=== PATIENT | female | born 1970 | race African-American/Black ===

== ENCOUNTER 2017-01-20 15:39 | Outpatient (CLI) ==
[2016-05-07 15:08] VITALS: BMI 34.0
[2017-01-20 18:18] LABS: BILIRUBIN,URINE Negative (NEGATIVE); KETONES,URINE Trace (NEGATIVE); LEUKOCYTE ESTERASE ,URINE Negative (NEGATIVE); NITRITE,URINE Negative (NEGATIVE); PH,URINE 6.5 (5-9); PROTEIN,URINE Negative (NEGATIVE); URINE, BLOOD Trace-intact (NEGATIVE)
[2017-01-20 18:33] LABS: ADD URINE MICROSCOPIC YES
== END 2017-01-20 15:40 | disposition home or self-care (01) ==
LOC: LAB 15:39
PROVIDERS: ATTEND Nurse Practitioner Family
DX: R30.0 Dysuria (principal)
CPT/HCPCS: 81001

== ENCOUNTER 2017-08-30 08:54 | Outpatient (CLI) ==
[2016-05-07 15:08] VITALS: BMI 34.0
[2017-08-30 09:20] LABS: BASOPHILS % (AUTO) 0.6 % (0.0-3.0); EOSINOPHILS % (AUTO) 0.6 % (0.0-7.0); HEMATOCRIT 36.7 % (37.0-47.0); HEMOGLOBIN 12.2 g/dl (12.0-16.0); LYMPHOCYTES # (AUTO) 1.5 K/uL (0.60-3.4); LYMPHOCYTES % (AUTO) 43.8 (10.0-50.0); MEAN CORPUSCULAR HEMOGLOBIN 29.5 pg (27.0-31.0); MEAN CORPUSCULAR HGB CONC 33.2 (31.8-35.4); MEAN CORPUSCULAR VOLUME 88.9 fl (81.0-99.0); MONOCYTES # (AUTO) 0.3 K/uL (0.4-2.0); MONOCYTES % (AUTO) 7.7 (0-10); NEUTROPHILS # (AUTO) 1.6 K/ul (2.0-6.9); NEUTROPHILS % (AUTO) 47.3; PLATELET COUNT 338 10^3/uL (140-440); RED BLOOD COUNT 4.13 10^6/ul (4.20-5.40); WHITE BLOOD COUNT 3.38 K/ul (4.6-10.2)
[2017-08-30 10:04] LABS: ALBUMIN 3.8 g/dL (3.4-5.0); ALBUMIN/GLOBULIN RATIO 0.83; ANION GAP 14.6; BILIRUBIN,TOTAL 0.16 mg/dL (0.00-1.20); BUN/CREATININE RATIO 8.13; CALCIUM 9.6 mg/dL (8.2-10.2); CHOL/HDL RATIO 4.2 (4.5-5.5); CREATININE 0.86 mg/dL (0.60-1.30); POTASSIUM 3.6 mmol/L (3.5-5.10); TOTAL PROTEIN 8.4 g/dL (6.4-8.2)
== END 2017-08-30 08:55 | disposition home or self-care (01) ==
LOC: LAB 08:54
PROVIDERS: ATTEND Emergency Medicine
DX: E78.5 Hyperlipidemia, unspecified (principal); I10 Essential (primary) hypertension; E66.9 Obesity, unspecified; D50.8 Other iron deficiency anemias
CPT/HCPCS: 36415; 80053; 80061; 84443; 85025

== ENCOUNTER 2017-09-01 09:29 | Outpatient (CLI) ==
[2016-05-07 15:08] VITALS: BMI 34.0
--- NOTE | 2017-09-02 10:34 | MAMMO ---
EXAM: Bilateral digital screening mammogram (2-D and 3-D) History: Screening Comparison: Bilateral mammogram 06/17/2014 Findings: MLO and CC views of bilateral breasts demonstrate heterogeneously dense breast parenchyma which can obscure small lesions. CAD was reviewed by the radiologist. Tomosynthesis was performed. There are no dominant masses, no suspicious microcalcifications and no architectural distortions Impression: Stable negative mammogram. Recommend followup routine screening mammography in 1 year. BIRADS 1
== END 2017-09-01 09:30 | disposition home or self-care (01) ==
LOC: RAD 09:29
PROVIDERS: ATTEND Emergency Medicine
DX: Z12.31 Encounter for screening mammogram for malignant neoplasm of breast (principal)
CPT/HCPCS: 77067

== ENCOUNTER 2018-02-27 07:08 | Outpatient (CLI) ==
[2016-05-07 15:08] VITALS: BMI 34.0
== END 2018-02-27 07:09 | disposition home or self-care (01) ==
LOC: LAB 07:08
PROVIDERS: ATTEND Nurse Practitioner Family
DX: D50.8 Other iron deficiency anemias (principal); I10 Essential (primary) hypertension; E78.5 Hyperlipidemia, unspecified
CPT/HCPCS: 36415; 80053; 80061; 85025

== ENCOUNTER 2018-02-28 08:04 | Outpatient (CLI) ==
[2016-05-07 15:08] VITALS: BMI 34.0
--- NOTE | 2018-02-28 11:58 | CT ---
EXAM: CT ABDOMEN AND PELVIS HISTORY: Abdominal pain, nausea and vomiting. TECHNIQUE: CT abdomen and pelvis with intravenous contrast. Images were reconstructed using 5 mm sec tion thickness. Reformations were prepared. FINDINGS: No comparison. Liver and spleen are unremarkable. Gallbladder, pancreas and adrenal glands appear normal. Normal e nhancement of the kidneys with no hydronephrosis. Normal abdominal aorta. Stomach appears grossly normal. There is no evidence of appendicitis. Normal bowel gas pattern. Douglas traci has been removed. The urinary bladder is grossly unremarkable. There is no ascites. There is an umbilical hernia which contains a short portion of regional small bowel without evidence of strangulation. The deep aspect of the hernia has a diameter of about 2.8 cm. The bones reveal mo derate degenerative changes at the lumbosacral junction. Left sacroiliitis is incidentally noted. L shawna bases reveal no acute infiltrates. There is no pneumoperitoneum. IMPRESSION: 1. No obvious acute intra-abdominal or pelvic abnormality. 2. There is an umbilical hernia which contains a short portion of regional small bowel without evide nce of strangulation. The deep aspect of the hernia has a diameter of about 2.8 cm. Bowel gas patter n is nonobstructive.
== END 2018-02-28 08:05 | disposition home or self-care (01) ==
LOC: RAD 08:04
PROVIDERS: ATTEND Nurse Practitioner Family
DX: R10.9 Unspecified abdominal pain (principal); R10.816 Epigastric abdominal tenderness; R11.2 Nausea with vomiting, unspecified

== ENCOUNTER 2018-04-18 16:11 | Outpatient (CLI) ==
[2016-05-07 15:08] VITALS: BMI 34.0
== END 2018-04-18 16:12 | disposition home or self-care (01) ==
LOC: RHC-LAB 16:11
PROVIDERS: ATTEND Nurse Practitioner Family
DX: R53.83 Other fatigue (principal)
CPT/HCPCS: 36415; 82306; 82607

== ENCOUNTER 2018-04-27 15:55 | Emergency (ER) ==
[2018-04-27 16:17] VITALS: BP 191/107; TEMP 99.1; BMI 38.0
--- NOTE | 2018-04-27 16:46 | US ---
EXAM: Abdominal ultrasound limited HISTORY: Abdominal pain with nausea and vomiting COMPARISON: CT abdomen pelvis 02/28/2018 and 03/21/2012 TECHNIQUE: Sonographic and limited Doppler evaluation of the right upper quadrant was performed. FINDINGS: The liver is increased in echogenicity and measures 12.3 cm. The portal vein is patent. The gallbladder demonstrates no stones or pericholecystic fluid. The gallbladder wall measures 0.2 c m in thickness. Common bile duct is unremarkable and measures 0.3 cm in diameter. The pancreas is po zina visualized due to bowel gas. The right kidney is normal in appearance measuring 10.1 x 4.0 x 3. 5 cm with cortical thickness of 0.9 cm. IMPRESSION: 1. Increased echogenicity of the liver suggestive of hepatic steatosis. 2. Gallbladder is unremarkable in appearance.
--- NOTE | 2018-04-27 16:58 | CT ---
EXAM: CT abdomen pelvis without contrast HISTORY: Umbilical pain, left lower quadrant abdominal pain, diarrhea COMPARISON: 02/28/2018 TECHNIQUE: CT abdomen pelvis performed without intravenous contrast. Coronal and sagittal reformatt ed images obtained. FINDINGS: Lung bases clear. No free air. No acute abnormalities of the bones. Degenerative change in the spine, L5-S1. Heart normal in size. Evaluation organ parenchyma limited without contrast. Liver unremarkable. Gallbladder unremarkable. Pancreas unremarkable. Spleen unremarkable. Adrenal s unremarkable. Aorta normal in caliber. Bladder unremarkable. Patient status post hysterectomy. No lymphadenopathy or ascites. Diastases anterior abdominal wall/wide neck ventral hernia containing nonobstructed small bowel, unchanged. Stomach appears normal. No dilated loops small bowel. Appen martina appears normal. Colon unremarkable. No hydronephrosis or nephrolithiasis. No calculi visualize d in normal course of the ureters. IMPRESSION: 1. No acute abnormality identified in the abdomen or pelvis. 2. Diastases anterior abdominal wall/wide neck ventral hernia containing nonobstructed small bowel, unchanged.
--- NOTE | 2018-04-27 17:26 | ED.PDOC ---
General ED Provider: Dr. MARZENA ROLAND Chief Complaint: Abdominal Pain Stated Complaint: abdominal pain chronic Time Seen by Physician: 16:00 Mode of Arrival: Walk-In Information Source: Family Exam Limitations: No limitations Primary Care Provider[facility] Nursing and Triage Documentation Reviewed and Agree: Yes Does patient meet sepsis criteria?: No System Inflammatory Response Syndrome: Not Applicable Sepsis Protocol: For patient's 13 years and over: Temp is 96.8 and below OR 101 and greater Pulse >90 BPM Resp >20/minute Acutely Altered Mental Status Are patient's symptoms suggestive of a new infection, such as: -Pneumonia -Skin, Soft Tissue -Endocarditis -UTI -Bone, Joint Infection -Implantable Device -Acute Abdominal Infection -Wound Infection -Meningitis -Blood Stream Catheter Infection -Unknown GI Complaint Exam - Abdominal Pain Complaint/Exam Onset: Gradual Duration: chronic issue Symptoms Are: Still present Initial Severity: Mild Current Severity: Mild Location of Pain: Diffuse Character: Reports: Aching Aggravating: Reports: None Alleviating: Reports: None Associated Signs and Symptoms: Denies: Diaphoresis, Fever, Cough, Chest pain, Dizziness, Back pain, Constipation, Blood in stool, Dysuria, Urinary frequency, Decreased urine output, Decreased appetite, Vaginal bleeding, Vaginal discharge , Nausea, Vomiting, Diarrhea, Sore throat, Decreased activity Related History: Reports: Similar episode AAA Risk Factors: Reports: None Cardiac Risk Factors: Reports: None Ectopic Risk Factors: Reports: None Ovarian Torsion Risk Factors: Reports: None Surgical Obstruction Risk Factors: Reports: None Related Surgical History: Reports: None Patient Rh Status: Unknown Abdominal Findings: Present: None Differential Diagnoses: Appendicitis, Bowel Obstruction, Constipation, Gastroenteritis, Hepatitis, Pancreatitis, Irritable Bowel Syndrome Review of Systems - Review Of Systems Constitutional: Reports: No symptoms Eyes: Reports: No symptoms Ears, Nose, Mouth, Throat: Reports: No symptoms Respiratory: Reports: No symptoms Cardiac: Reports: No symptoms GI: Reports: Abdominal pain : Reports: No symptoms Musculoskeletal: Reports: No symptoms Skin: Reports: No symptoms Neurological: Reports: No symptoms Endocrine: Reports: No symptoms Hematologic/Lymphatic: Reports: No symptoms All Other Systems: Reviewed and Negative Past Medical History - Past Medical History Previously Healthy: No Endocrine: Reports: None Cardiovascular: Reports: Hypertension Respiratory: Reports: None Hematological: Reports: None Gastrointestinal: Reports: GERD Genitourinary: Reports: None Neuro/Psych: Reports: None Musculoskeletal: Reports: None Cancer: Reports: None Last Menstrual Period: hysterectomy - Surgical History General Surgical History: Reports: None - Family History Family History: Reports: None - Social History Smoking Status: Never smoker Hx Substance Use: No Alcohol Screening: None Physical Exam - Physical Exam Appearance: Well-appearing, No pain distress, Well-nourished Eyes: JEANNETTE, EOMI, Conjunctiva clear ENT: Ears normal, Nose normal, Oropharynx normal Respiratory: Airway patent, Breath sounds clear, Breath sounds equal, Respirations nonlabored Cardiovascular: RRR, Pulses normal, No rub, No murmur GI/: Soft, Nontender, No masses, Bowel sounds normal, No Organomegaly Musculoskeletal: Normal strength, ROM intact, No edema, No calf tenderness Skin: Warm, Dry, Normal color Neurological: Sensation intact, Motor intact, Reflexes intact, Cranial nerves intact, Alert, Oriented Psychiatric: Affect appropriate, Mood appropriate Interpretation - Radiology Interpretation Radiology Results: Positive (fatty liver) Critical Care Note - Critical Care Note Total Time (mins): 0 Course - Course Hematology/Chemistry: 04/27/18 16:44 Orders, Labs, Meds: Lab Review 04/27/18 04/27/18 16:10 16:44 Sodium 138 Potassium 3.2 L Chloride 103 Carbon Dioxide 24 Anion Gap 14.2 BUN 6 L Creatinine 0.83 Estimated GFR (MDRD) 90.00 BUN/Creatinine Ratio 7.22 Glucose 95 Calcium 9.8 Total Bilirubin 0.3 AST 17 ALT 17 Alkaline Phosphatase 75 Total Protein 8.6 H Albumin 4.0 Globulin 4.6 Albumin/Globulin Ratio 0.87 Amylase 143 H Lipase 44 Urine Color Yellow Urine Clarity Clear Urine pH 6.0 Ur Specific [place] <=1.005 Urine Protein Negative Urine Glucose (UA) Negative Urine Ketones Negative Urine Blood Negative Urine Nitrite Negative Urine Bilirubin Negative Urine Urobilinogen 0.2 Ur Leukocyte Esterase Trace Urine Microscopic RBC 0-2 Urine Microscopic WBC 0-2 Ur Squamous Epith Cells Not present Orders Category Date Time Status NPO REMINDER: IMAGING ONCE CARE 04/27/18 16:19 Ordered AMYLASE Stat LAB 04/27/18 16:18 Ordered CBC W/ AUTO DIFF Stat LAB 04/27/18 16:18 Ordered COMPREHENSIVE METABOLIC PANEL Stat LAB 04/27/18 16:18 Ordered LIPASE Stat LAB 04/27/18 16:18 Ordered URINALYSIS C & S IF INDICATED Stat LAB 04/27/18 16:[address] ABDOMEN/PELVIS WO CONTRAST Stat RADS 04/27/18 16:18 Ordered ULTRASOUND ABDOMEN, RT. UPPER QUAD [U/S ABDOMEN, RT. RADS 04/27/18 16:19 Ordered UPPER QUAD] Stat Vital Signs: Temp Pulse Resp BP Pulse Ox 04/27/18 15:56 99.1 F 95 H 20 191/107 H 97 Departure - Departure Time of Disposition: 17:25 (d/c instruction given with chaz hall disccused fatty liver pt admitt to eating fast foods and will see a installation drafter ) Disposition: HOME SELF-CARE Discharge Problem: Abdominal pain, Fatty liver Abdominal pain Qualifiers: Abdominal location: unspecified location Qualified Code(s): R10.9 - Unspecified abdominal pain Instructions: Non-Alcoholic Fatty Liver Disease (ED), Chronic Abdominal Pain ( ED) Condition: Good Pt referred to PMD for follow-up: Yes IPMP verified?: No Additional Instructions: Please call your Family Physician as soon as possible to schedule a follow-up appointment. Allergies/Adverse Reactions: Allergies metaxalone [From Skelaxin] Allergy (Intermediate, Verified 04/27/18 16:05) Itching morphine Allergy (Mild, Verified 04/27/18 16:05) nausea Patient will notify drugstore Disposition Discussed With: Patient
== END 2018-04-27 17:36 | disposition home or self-care (01) ==
LOC: ED 15:55
DX: R10.9 Unspecified abdominal pain (principal); I10 Essential (primary) hypertension; K21.9 Gastro-esophageal reflux disease without esophagitis; K76.0 Fatty (change of) liver, not elsewhere classified
CPT/HCPCS: 36415; 80053; 81001; 82150; 83690; 85025; 99283

== ENCOUNTER 2018-05-26 10:45 | Outpatient (CLI) ==
--- NOTE | 2018-05-26 11:39 | DI ---
EXAM: Two views of the left clavicle. History: Left clavicle pain. Findings: No acute fracture or dislocation. Joint spaces are preserved. Calcified granuloma seen wi thin the left lung. Impression: No acute osseous abnormality
--- NOTE | 2018-05-26 13:14 | DI ---
EXAM: Three views of the left shoulder. History: Left shoulder pain. Findings: No acute fracture or dislocation. Joint spaces are preserved. Calcified granulomas seen within the left lung. No radiopaque foreign bodies. Impression: No acute osseous abnormality.
== END 2018-05-26 10:46 | disposition home or self-care (01) ==
LOC: RAD 10:45
PROVIDERS: ATTEND Emergency Medicine
DX: M25.512 Pain in left shoulder (principal); M89.8X1 Other specified disorders of bone, shoulder

== ENCOUNTER 2018-06-22 13:00 | Outpatient (RCR) ==
--- NOTE | 2018-06-16 14:45 | RS.OPPTEV2 ---
Date of Note: 06/15/18 Visit #: 1 Date of Evaluation: 06/15/18 Payer Source: Insurance Date of Onset/Injury/Change in Status: 05/10/18 Surgery Performed?: No Treatment Diagnosis: L shld pain History of Condition/Mechanism of Injury:: pt states she was loading heavy luggage on a ori[place] orth[place] trip and felt a pop. States her pain is getting worse. Prior Level of Function.....Patient was independent with: ADL's, Self Care, Caregiving, Ambulation/Mobility, Community Integration/Access Functional Limitations: Sleep, Reaching, Pushing, Pulling, Lifting, Carrying Current Subjective/complaints:: pt states she is having increased pain which is effecting her sleep. Treatment Side (optional): Left *Precautions: n/a Medical History Medical History: Hypertension Surgical History: Hysterectomy Surgical History Comments:: heart cath Smoking Status: Never smoker Diagnostic Testing/Imaging:: xrays : L clavicle no acute abnormality. L shld : no acute abnormality Hx Home Medications: flexeril, lisinopril, zocor, ibuprofen Patient's Goals: decrease pain Pain Assessment - Pain Description Pain Location: L shld, upper trap, ant clavicle Pain Description: Aching Current Pain Intensity: 5/10 Functional Outcome Measure UE Functional Index: 46 (42%) - G Codes & Severity Modifier G Codes & Modifier: n/a Source of G Code score: n/a Observation - Observation Posture: Forward Head, Rounded Shoulders, Decreased Cervical Lordosis Handedness: Right Gait - Gait Pattern General Gait Pattern Observation: No Deviations/Normal General Range of Motion: RUE , BLE WFL's Muscle Strength: RUE 5/5. BLE 5/5 Shoulder ROM: Right WFL's Shoulder Muscle Strength: Right WFL's - Left Shoulder ROM Left Shoulder Flexion: 158 (AAROM) Left Shoulder Abduction: 134 (AAROM) Left Shoulder ROM Limitations: Soft Tissue Tightness, Muscle Weakness, Muscle Tone Comments: IR/ER WFL's with pain - Left Shoulder Strength Left Shoulder Flexion: 3 Fair Left Shoulder Extension: 3 Fair Left Shoulder External Rotation: 3 Fair Left Shoulder Internal Rotation: 3 Fair - Special Tests Shoulder Empty Can (Supraspinatus) Test: Negative Left Shoulder Speed's Sign Test: Negative Left Shoulder Drop Arm Test: Negative Left Shoulder Pagan-Carlos Impingement Test: Negative Left Acromioclavicular Joint Distraction Test: Positive Left Palpation Palpation Findings: Tenderness Comments:: pt with point tenderness over the L AC Joint with trigger point noted in L upper trap Sensation - Sensation Right Upper Extremity: Intact/Normal Left Upper Extremity: Intact/Normal Right Lower Extremity: Intact/Normal Left Lower Extremity: Intact/Normal Balance - Sitting Balance Static Sitting Balance: Normal Dynamic Sitting Balance: Normal - Standing Balance Static Standing Balance: Normal Dynamic Standing Balance: Normal - Treatment Modality: Ultrasound Parameters/Method Applied: 1.5w/cm2 pulsed x 7 mins Treatment Area: L AC joint Patient Position: Sitting - Heat/Cryotherapy Treatment: Cryotherapy Comments:: L shld Interventions - Exercise/Activities/Manual Therapy Exercises/Activities: pt performed upper trap stretch, corner stretch scapular retraction, wall joshua position for stretch. Manual Therapy: n/a HOME EXERCISE PROGRAM: pt given written HEP including: upper trap stretch, corner stretch, scapular retraction, wall angle position for stretch. - Charges Timed Code Treatment Minutes: 51 Total Treatment Time: 62 Procedures billed for this date of service:: eval low, ultrasound, cold pack EVALUATION COMPLEXITY LEVEL EVALUATION COMPLEXITY LEVEL: HISTORY: Low, EXAM OF BODY SYSTEMS: Medium, CLINICAL PRESENTATION: Low, CLINICAL DECISION MAKING: Low Assessment Assessment: pt presents with pain in area of L AC joint as well as upper trap. pt with pinpoint tenderness at joint as well as pain with end ROM. pt with decreased strength. Feel pt would benefit from PT for therex for strengthening as well as modalities to decrease pain and inflammation Patient Education: Home Exercise Program, Education of Plan of Care Short Term Goals Goal #1: pt rate pain <5/10 with activity Goal to be met by: 06/29/18 Goal #2: pt with decreased tightness in L upper trap equal to R Goal to be met by: 06/29/18 Goal #3: Improved ROM L shld flex 160 abd 135 Goal to be met by: 06/29/18 Goal #4: pt independent with initial HEP Goal to be met by: 06/29/18 Half-Way Goals Goal #1: pt with ROM L shld WFL's with less pain < 4/10 Goal to be met by: 07/14/18 Goal #2: pt report improved ability to perform normal daily activities w less pain Goal to be met by: 07/14/18 Goal #3: pt able to sleep through the night w/o interruption from pain Goal to be met by: 07/14/18 Plan - Treatment to be Provided Procedures: Therapeutic Exercises, Therapeutic Activity, Manual Therapy, Massage , Patient Education Modalities: Electrical Stimulation, Ultrasound/Phonophoresis, Class IV Laser, Cryotherapy, Hot Packs - Treatment Plan Frequency: 2-3x a week Duration: 4 weeks ORDER # VISITS AND/OR THROUGH DATE: 07/14/18 - Treatment Code (1) Pain in joint, shoulder region Code(s): M25.519 - PAIN IN UNSPECIFIED SHOULDER Qualifiers: Laterality: left Qualified Code(s): M25.512 - Pain in left shoulder (2) Muscle tightness Code(s): M62.89 - OTHER SPECIFIED DISORDERS OF MUSCLE (3) AC joint pain Code(s): M25.519 - PAIN IN UNSPECIFIED SHOULDER Qualifiers: Laterality: left Qualified Code(s): M25.512 - Pain in left shoulder
--- NOTE | 2018-06-19 14:31 | RS.OPPTDN ---
Subjective Date of Note: 06/19/18 Visit #: 2 Date of Evaluation: 06/15/18 Payer Source: Insurance Treatment Diagnosis: L shld pain Current Subjective/complaints:: Patient reports pain continues at the left anterior shoulder joint with active reaching. Reports she is doing HEP and will add isometrics as instructed. *Precautions: n/a Pain Assessment - Pain Description Pain Location: left shoulder and distal clavicle Current Pain Intensity: 7/10 - Treatment Modality: Ultrasound Parameters/Method Applied: [id number] at 1.5w/cm2 to the left shoulder joint with focus on anterior superior joint. Patient Position: Sitting - Heat/Cryotherapy Treatment: Hot Pack ([id number] to the left shoulder prior to US and EX. Patient in sitting. ) Interventions - Exercise/Activities/Manual Therapy Exercises/Activities: PROM and AAROM of the left shoulder in sitting. Reviewed upper trap stretch, corner stretch scapular retraction, wall joshua position for stretch. Began manually resisted isometrics of shoulder ext, add, abd, IR, and ER. Patient given copy of new exercises. Total minutes of Exercise: 17mins Manual Therapy: n/a HOME EXERCISE PROGRAM: pt given written HEP including: upper trap stretch, corner stretch, scapular retraction, wall angle position for stretch. Isometric shoulder ext, add, abd, IR, and ER. - Charges Timed Code Treatment Minutes: 27mins Total Treatment Time: 52mins Procedures billed for this date of service:: HP, US, EX Assessment: Patient able to perform HEP and new exercises that were added. Patient Education: Education of diagnosis, Body/Joint mechanics, Home Exercise Program, Activity Modification Patient demonstrates compliance with HEP?: Yes Short Term Goals Goal #1: pt rate pain <5/10 with activity Goal to be met by: 06/29/18 Goal #2: pt with decreased tightness in L upper trap equal to R Goal to be met by: 06/29/18 Progress towards Goal:: Progressing Goal #3: Improved ROM L shld flex 160 abd 135 Goal to be met by: 06/29/18 Goal #4: pt independent with initial HEP Goal to be met by: 06/29/18 Progress towards Goal:: Progressing Airconditioning Drafting Officer Goals Goal #1: pt with ROM L shld WFL's with less pain < 4/10 Goal to be met by: 07/14/18 Goal #2: pt report improved ability to perform normal daily activities w less pain Goal to be met by: 07/14/18 Goal #3: pt able to sleep through the night w/o interruption from pain Goal to be met by: 07/14/18 Plan PLAN OF CARE EXPIRES ON:: 07/14/18 ORDER # VISITS AND/OR THROUGH DATE: 07/14/18 PLAN: Continue modalities and progress exercise to reduce pain and increase functional use of the left UE.
--- NOTE | 2018-06-22 16:29 | RS.OPPTDN ---
Subjective Date of Note: 06/22/18 Visit #: 3 Date of Evaluation: 06/15/18 Payer Source: Insurance Treatment Diagnosis: L shld pain Current Subjective/complaints:: Patient reports increase in ROM of the left shoulder joint. Reports pain at end range is not as intense. State she is working on HEP as instructed. *Precautions: n/a Pain Assessment - Pain Description Pain Location: Left shoulder Current Pain Intensity: 3/10 - Treatment Modality: Ultrasound Parameters/Method Applied: [id number] to the left shoulder joint with focus on anterior joint prior to EX. Patient Position: Sitting - Heat/Cryotherapy Treatment: Hot Pack (20mins to the left shoulder joint prior to US and EX. Patient in sitting. ) Interventions - Exercise/Activities/Manual Therapy Exercises/Activities: PROM and AAROM of the left shoulder in sitting. Manually resisted isometrics of shoulder ext, add, abd, IR, and ER. Began isometric shoulder flexion at neutral position. Added 3 positions to doorway stretch. Total minutes of Exercise: 16mins Manual Therapy: n/a HOME EXERCISE PROGRAM: pt given written HEP including: upper trap stretch, corner stretch, scapular retraction, wall angle position for stretch. Isometric shoulder ext, add, abd, IR, and ER. 3 position doorway stretch for anterior chest and shoulder joints. - Objective Findings Observations,measurements,etc.: Passive left shouler flexion to approx 160-165 degrees with painful end-range. - Charges Timed Code Treatment Minutes: 26mins Total Treatment Time: 46mins Procedures billed for this date of service:: HP, US, EX Assessment: Patient with increase PROM of the left shoulder. Patient Education: Body/Joint mechanics, Home Exercise Program, Home Safety, Activity Modification Comments: Patient education of joint mechanics. Patient advised to continue gentle stretching and isometrics. Patient demonstrates compliance with HEP?: Yes Short Term Goals Goal #1: pt rate pain <5/10 with activity Goal to be met by: 06/29/18 Goal #2: pt with decreased tightness in L upper trap equal to R Goal to be met by: 06/29/18 Progress towards Goal:: Progressing Goal #3: Improved ROM L shld flex 160 abd 135 Goal to be met by: 06/29/18 Goal #4: pt independent with initial HEP Goal to be met by: 06/29/18 Progress towards Goal:: Progressing Check Totaler Goals Goal #1: pt with ROM L shld WFL's with less pain < 4/10 Goal to be met by: 07/14/18 Goal #2: pt report improved ability to perform normal daily activities w less pain Goal to be met by: 07/14/18 Goal #3: pt able to sleep through the night w/o interruption from pain Goal to be met by: 07/14/18 Plan PLAN OF CARE EXPIRES ON:: 07/14/18 ORDER # VISITS AND/OR THROUGH DATE: 07/14/18 PLAN: Continue modalities and progress exercise to reduce pain and increase functional use of the left UE.
== END 2018-06-25 23:59 ==
PROVIDERS: ATTEND Nurse Practitioner Family
DX: S43.492D Other sprain of left shoulder joint, subsequent encounter (principal)

== ENCOUNTER 2018-07-06 13:00 | Outpatient (RCR) ==
--- NOTE | 2018-06-26 10:21 | RS.CXNS ---
Date of scheduled appointment: 06/26/18 Type: Cancel (Patient calls to cancel appointment. States she has had a family emergency. Rescedules for tomorrow.)
--- NOTE | 2018-06-27 16:01 | RS.OPPTDN ---
Subjective Date of Note: 06/27/18 Visit #: 4 Date of Evaluation: 06/15/18 Payer Source: Insurance Treatment Diagnosis: L shld pain Current Subjective/complaints:: Patient reports treatment has been helping, but she had increased pain after rolling over in bed and straining left shoulder. Reports she has been sleeping better and has improved active reaching with the left UE. *Precautions: n/a Pain Assessment - Pain Description Pain Location: left shoulder joint Pain Description: Sharp, Aching Current Pain Intensity: mild, no pain at rest Worst Pain Intensity: 5-6/10 with reaching - Treatment Modality: Ultrasound Parameters/Method Applied: [id number] at 1.5w/cm2 to the left shoulder joint prior to EX. Patient Position: Sitting - Heat/Cryotherapy Treatment: Hot Pack ([id number] to the left shoulder prior to US and EX. Patient in sitting. ) Interventions - Exercise/Activities/Manual Therapy Exercises/Activities: PROM and AAROM of the left shoulder in sitting. Manually resisted isometrics of shoulder flexion, ext, add, abd, IR, and ER. Began yellow theraband for resistive bilateral shoulder ER, 2s/10reps. Patient education of dx, joint mechanics, safety with ADL's, and HEP. Patient give copy of new exercise. Total minutes of Exercise: 21mins Manual Therapy: n/a HOME EXERCISE PROGRAM: pt given written HEP including: upper trap stretch, corner stretch, scapular retraction, wall angle position for stretch. Isometric shoulder ext, add, abd, IR, and ER. 3 position doorway stretch for anterior chest and shoulder joints. Yellow theraband for bilateral shoulder ER. - Charges Timed Code Treatment Minutes: 31mins Total Treatment Time: 46mins Procedures billed for this date of service:: HP, US, EX Assessment: Patient responding to treatment and exercise, but has experienced a flair-up after turning over in bed. She appears to be working on HEP as instructed. Patient Education: Education of diagnosis, Body/Joint mechanics, Home Exercise Program, Home Safety, Activity Modification Comments: Patient education discussion with patient and of dx, joint mechanics, safety with ADL's, and HEP. Patient demonstrates compliance with HEP?: Yes Short Term Goals Goal #1: pt rate pain <5/10 with activity Goal to be met by: 06/29/18 Progress towards Goal:: Progressing Goal #2: pt with decreased tightness in L upper trap equal to R Goal to be met by: 06/29/18 Progress towards Goal:: Progressing Goal #3: Improved ROM L shld flex 160 abd 135 Goal to be met by: 06/29/18 Progress towards Goal:: Progressing Goal #4: pt independent with initial HEP Goal to be met by: 06/29/18 Progress towards Goal:: Partially Met Intermediate Goals Goal #1: pt with ROM L shld WFL's with less pain < 4/10 Goal to be met by: 07/14/18 Goal #2: pt report improved ability to perform normal daily activities w less pain Goal to be met by: 07/14/18 Goal #3: pt able to sleep through the night w/o interruption from pain Goal to be met by: 07/14/18 Progress towards goal: Progressing Plan PLAN OF CARE EXPIRES ON:: 07/14/18 ORDER # VISITS AND/OR THROUGH DATE: 07/14/18 PLAN: Continue modalities and progress exercise to reduce pain and increase functional use of the left UE.
--- NOTE | 2018-06-29 15:21 | RS.OPPTDN ---
Subjective Date of Note: 06/29/18 Visit #: 5 Date of Evaluation: 06/15/18 Payer Source: Insurance Treatment Diagnosis: L shld pain Current Subjective/complaints:: Patient reports left sholder and upper arm pain continues. States treatment seems to have helped but superior shoulder joint pain continues to limit functional use of the left UE. *Precautions: n/a Pain Assessment - Pain Description Pain Location: left superior shoulder joint, AC joint Pain Description: Aching Current Pain Intensity: moderate with active reaching - Treatment Modality: Ultrasound Parameters/Method Applied: [id number] at 1.5w/cm2 to the left shoulder joint with focus around the AC joint prior to EX. Patient Position: Sitting - Heat/Cryotherapy Treatment: Hot Pack ([id number] to the left shoulder prior to US and EX. Patient in sitting. ) Interventions - Exercise/Activities/Manual Therapy Exercises/Activities: PROM and AAROM of the left shoulder in sitting. Manually resisted isometrics of shoulder flexion, ext, add, abd, IR, and ER. Manually resisted "empty can" position, sets of 3reps. Patient continues yellow theraband for resistive bilateral shoulder ER with HEP. Continued patient edcuation discussion of dx, joint mechanics, safety with ADL's, and HEP. Patient advised to contact physicians office concerning continued discomfort limiting functional use of the left UE. No new exercises. Total minutes of Exercise: 16mins Manual Therapy: n/a HOME EXERCISE PROGRAM: pt given written HEP including: upper trap stretch, corner stretch, scapular retraction, wall angle position for stretch. Isometric shoulder ext, add, abd, IR, and ER. 3 position doorway stretch for anterior chest and shoulder joints. Yellow theraband for bilateral shoulder ER. - Objective Findings Observations,measurements,etc.: Demos active left shoulder flexion to 135 degrees and abduction to 136 degrees. - Charges Timed Code Treatment Minutes: 26mins Total Treatment Time: 46mins Procedures billed for this date of service:: HP, US, EX Assessment: Patient reports some improvement but pain at the AC joint continues to limit funtional use of the left UE. Patient Education: Body/Joint mechanics, Home Exercise Program, Activity Modification Comments: Reviewed shoulder joint mechanics, HEP, and advised patient to contact physicians office to schedule a follow-up to discuss continued discomfort at the AC joint area. Patient demonstrates compliance with HEP?: Yes Short Term Goals Goal #1: pt rate pain <5/10 with activity Goal to be met by: 06/29/18 Progress towards Goal:: Partially Met Goal #2: pt with decreased tightness in L upper trap equal to R Goal to be met by: 06/29/18 Progress towards Goal:: Progressing Goal #3: Improved ROM L shld flex 160 abd 135 Goal to be met by: 06/29/18 Progress towards Goal:: Partially Met Goal #4: pt independent with initial HEP Goal to be met by: 06/29/18 Progress towards Goal:: Met Manager Of Internal Goals Goal #1: pt with ROM L shld WFL's with less pain < 4/10 Goal to be met by: 07/14/18 Progress towards goal: Progressing Goal #2: pt report improved ability to perform normal daily activities w less pain Goal to be met by: 07/14/18 Goal #3: pt able to sleep through the night w/o interruption from pain Goal to be met by: 07/14/18 Progress towards goal: Progressing Plan PLAN OF CARE EXPIRES ON:: 07/14/18 ORDER # VISITS AND/OR THROUGH DATE: 07/14/18 PLAN: Continue treatment next week to reduce pain and increase functional use of the UE. Patient will be scheduling follow-up with physician.
--- NOTE | 2018-07-03 15:40 | RS.OPPTDN ---
Subjective Date of Note: 07/03/18 Visit #: 6 Date of Evaluation: 06/15/18 Payer Source: Insurance Treatment Diagnosis: L shld pain Current Subjective/complaints:: Patient reports pain in the left shoulder has improved with exception of discomfort at the AC joint with active abduction and resistive work. She does report improvement in reaching for seatbelt and with reaching behind her back. States she has contacted her physicians office and she is being referred to an orthopedic surgeon. *Precautions: n/a Pain Assessment - Pain Description Pain Location: left shoulder AC joint Current Pain Intensity: mild, mod with resistve work - Treatment Modality: Ultrasound Parameters/Method Applied: [id number] at 1.5w/cm2 to the left shoulder joint and upper arm prior to EX. Patient Position: Sitting - Heat/Cryotherapy Treatment: Hot Pack ([id number] to the left shoulder prior to US and EX. Patient in sitting. ) Interventions - Exercise/Activities/Manual Therapy Exercises/Activities: PROM and AAROM of the left shoulder in sitting. Manually resisted isometrics of shoulder flexion, ext, add, abd, IR, and ER. Patient advancing to red theraband for resistive bilateral shoulder ER. Continued patient edcuation discussion of dx, joint mechanics, safety with ADL's, and HEP. Total minutes of Exercise: 16mins Manual Therapy: n/a HOME EXERCISE PROGRAM: pt given written HEP including: upper trap stretch, corner stretch, scapular retraction, wall angle position for stretch. Isometric shoulder ext, add, abd, IR, and ER. 3 position doorway stretch for anterior chest and shoulder joints. Yellow theraband for bilateral shoulder ER. - Charges Timed Code Treatment Minutes: 26mins Total Treatment Time: 46mins Procedures billed for this date of service:: HP, US, EX Assessment: Patient has progressed with treatment and reports a decrease in left shoulder region pain and an increase in motion with daily functional activities. Patient Education: Body/Joint mechanics, Home Exercise Program Patient demonstrates compliance with HEP?: Yes Short Term Goals Goal #1: pt rate pain <5/10 with activity Goal to be met by: 06/29/18 Progress towards Goal:: Partially Met Goal #2: pt with decreased tightness in L upper trap equal to R Goal to be met by: 06/29/18 Progress towards Goal:: Partially Met (Active assisted left shoulder flexion to 160 degrees today.) Goal #3: Improved ROM L shld flex 160 abd 135 Goal to be met by: 06/29/18 Progress towards Goal:: Partially Met Goal #4: pt independent with initial HEP Goal to be met by: 06/29/18 Progress towards Goal:: Met Center Line Cutter Operator Goals Goal #1: pt with ROM L shld WFL's with less pain < 4/10 Goal to be met by: 07/14/18 Progress towards goal: Partially Met Goal #2: pt report improved ability to perform normal daily activities w less pain Goal to be met by: 07/14/18 Progress towards goal: Progressing Goal #3: pt able to sleep through the night w/o interruption from pain Goal to be met by: 07/14/18 Progress towards goal: Progressing Plan PLAN OF CARE EXPIRES ON:: 07/14/18 ORDER # VISITS AND/OR THROUGH DATE: 07/14/18 PLAN: Continue treatment this week to reduce pain and increase functional use of the left UE.
--- NOTE | 2018-07-06 15:47 | RS.OPPTDN ---
Subjective Date of Note: 07/06/18 Visit #: 7 Number of visits approved by Insurance: NA Date of Evaluation: 06/15/18 Payer Source: Insurance Treatment Diagnosis: L shld pain Current Subjective/complaints:: Patient reports she has progressed with decreased pain and increased ROM. Patient reports pain continues at the superior shoulder joint at the AC joint. States she will stop treatment at this time as she is going out of town and feels like she is reaching a standstill in progress. *Precautions: n/a Pain Assessment - Pain Description Pain Location: Left shoulder joint Pain Description: Sharp, Aching Current Pain Intensity: mild discomfort, mod with actvie flex or abd - Treatment Modality: Ultrasound Parameters/Method Applied: [id number] at 1.5w/cm2 to the left shoulder joint and upper arm prior to EX. Patient Position: Sitting - Heat/Cryotherapy Treatment: Hot Pack ([id number] to the left shoulder joint prior to US and EX. Patient in sitting. ) Interventions - Exercise/Activities/Manual Therapy Exercises/Activities: PROM and AAROM of the left shoulder in sitting. Manually resisted isometrics of shoulder flexion, ext, add, abd, IR, and ER. Red theraband for resistive bilateral shoulder ER. Finalized patient edcuation of dx, joint mechanics, safety with ADL's, and HEP. Reminded patient to continue end range stretching in doorway and with wall walking. Total minutes of Exercise: 16mins Manual Therapy: n/a HOME EXERCISE PROGRAM: pt given written HEP including: upper trap stretch, corner stretch, scapular retraction, wall angle position for stretch. Isometric shoulder ext, add, abd, IR, and ER. 3 position doorway stretch for anterior chest and shoulder joints. Yellow theraband for bilateral shoulder ER. - Objective Findings Observations,measurements,etc.: Active left shoulder flexion to 151 degrees and abduction to 146 degrees. - Charges Timed Code Treatment Minutes: 26mins Total Treatment Time: 46mins Procedures billed for this date of service:: HP, US, EX Assessment: Patient has progressed with reports of decreased pain and increased AROM. Patient has met 3 or 7 treatment goals and will continue HEP following discharge. Patient Education: Body/Joint mechanics, Home Exercise Program Comments: Patient advised to continue HEP. Patient demonstrates compliance with HEP?: Yes Short Term Goals Goal #1: pt rate pain <5/10 with activity Goal to be met by: 06/29/18 Progress towards Goal:: Partially Met Goal #2: pt with decreased tightness in L upper trap equal to R Goal to be met by: 06/29/18 Progress towards Goal:: Partially Met (Active assisted left shoulder flexion to 160 degrees today.) Goal #3: Improved ROM L shld flex 160 abd 135 Goal to be met by: 06/29/18 Progress towards Goal:: Partially Met Goal #4: pt independent with initial HEP Goal to be met by: 06/29/18 Progress towards Goal:: Met Seat Coverer Goals Goal #1: pt with ROM L shld WFL's with less pain < 4/10 Goal to be met by: 07/14/18 Progress towards goal: Partially Met Goal #2: pt report improved ability to perform normal daily activities w less pain Goal to be met by: 07/14/18 Progress towards goal: Met Goal #3: pt able to sleep through the night w/o interruption from pain Goal to be met by: 07/14/18 Progress towards goal: Met Plan Dates of Seat Coverer Goals: 07/14/18 Expiration date of current Insurance Approval:: NA PLAN: Discharge with HEP.
--- NOTE | 2018-07-06 15:53 | RS.QUICKDC ---
Discharge from PT Date of Discharge: 07/06/18 Number of Visits: 7 Reason for Discharge: Patient progressed well and reported a decrease in pain. She met 3 of 7 goals and was independent with HEP. She reports she was going out of town and felt like she was reaching a standstill in progress. Discharge with HEP.
== END 2018-07-26 23:59 ==
PROVIDERS: ATTEND Nurse Practitioner Family
DX: S43.492D Other sprain of left shoulder joint, subsequent encounter (principal); M25.512 Pain in left shoulder; M62.89 Other specified disorders of muscle